=== PATIENT | female | born 1955 | race Caucasian/White ===

== ENCOUNTER 2019-12-16 08:00 | Outpatient (CLI) | payer OTHER ==
[2019-12-17 10:32] LABS: BASOPHILS % (AUTO) 0.9 %; EOSINOPHILS # (AUTO) 0.1 10^3/uL (0.0-0.7); EOSINOPHILS % (AUTO) 2.4 %; HGB - HEMOGLOBIN 13.7 g/dL (12.0-16.0); LYMPHOCYTES # (AUTO) 1.5 10^3/uL (1.5-3.5); LYMPHOCYTES % (AUTO) 34.8 %; MEAN CORPUSCULAR HEMOGLOBIN 32.2 pg (27.0-31.0); MEAN CORPUSCULAR HGB CONC 33.7 g/dL (32.0-36.0); MEAN CORPUSCULAR VOLUME 95.5 fL (81.0-99.0); MEAN PLATELET VOLUME 9.5 fL (7.9-10.8); MONOCYTES # (AUTO) 0.5 10^3/uL (0.0-1.0); MONOCYTES % (AUTO) 11.3 %; NEUTROPHILS # (AUTO) 2.1 10^3/uL (1.5-6.6); NEUTROPHILS % (AUTO) 50.4 %; PLT - PLATELET COUNT 361 10^3/uL (130-450); RED BLOOD COUNT 4.25 10^6/uL (4.20-5.40); RED CELL DISTRIBUTION WIDTH 11.6 % (12.0-15.0); WHITE BLOOD COUNT 4.2 x10^3/uL (4.8-10.8)
[2019-12-17 11:05] LABS: ALBUMIN 4.3 g/dL (3.2-5.5); ALBUMIN/GLOBULIN RATIO 1.6 (1.0-2.2); ALKALINE PHOSPHATASE 61 IU/L (42-121); ALT ALANINE AMINOTRANSFERASE 16 IU/L (10-60); AST ASPARTATE AMINOTRANSFERASE 17 IU/L (10-42); BILIRUBIN,TOTAL 0.8 mg/dL (0.2-1.0); BUN - BLOOD UREA NITROGEN 19 mg/dL (6-20); CALCIUM 9.5 mg/dL (8.5-10.3); CARBON DIOXIDE - CO2 30 mmol/L (21-32); CHLORIDE 101 mmol/L (101-111); CHOL/HDL RATIO 2.7 (<4.4); CHOLESTEROL 210 mg/dL; CREATININE 0.7 mg/dL (0.4-1.0); GFR - MDRD 85 (>89); GLUCOSE 109 mg/dL (70-100); HDL CHOLESTEROL 77 mg/dL; LDL CHOLESTEROL,CALCULATED 124 mg/dL; LDL/HDL RATIO 1.6 (<4.4); SODIUM 140 mmol/L (135-145); VLDL CHOLESTEROL 9 mg/dL
== END 2019-12-16 23:59 | disposition home or self-care (01) ==
LOC: LAB.S 08:00
PROVIDERS: ATTEND Registered Nurse
DX: I10 Essential (primary) hypertension (principal); R00.2 Palpitations
CPT/HCPCS: 36415; 80053; 80061; 83721; 84443; 85025

== ENCOUNTER 2020-08-11 14:33 | Outpatient (CLI) | payer OTHER ==
--- NOTE | 2020-08-11 16:35 | XRAY Report ---
PROCEDURE: SI Joints INDICATIONS: LOW BACK PAIN, L SI JOINT PAIN TECHNIQUE: 3 views of the sacroiliac joints were acquired. COMPARISON: None. FINDINGS: Bones: Mild osteoarthritic changes are noted in bilateral sacroiliac joints with joint space narrowin g and subchondral sclerosis. No bony erosions or ankylosis. No suspicious bony lesions. No fracture s. Soft tissues: Overlying bowel gas pattern is normal. No suspicious soft tissue densities. IMPRESSION: Mild bilateral sacroiliac joint osteoarthritis. No bony erosion or ankylosis. No fracture or dislocat ion. Reviewed by: Lamonte Collazo MD on 08/11/2020 4:33 PM PDT Approved by: Lamonte Collazo MD on 08/11/2020 4:33 PM PDT Station ID: [id number]
--- NOTE | 2020-08-11 16:36 | XRAY Report ---
PROCEDURE: Lumbar Spine 2 View INDICATIONS: LOW BACK PAIN, L SI JOINT PAIN TECHNIQUE: 3 views of the lumbar spine were acquired. COMPARISON: None. FINDINGS: Bones: 5 [id number] vertebrae are present. There is straightening of normal lumbar lordosis. M ild degenerative endplate changes and bilateral facet arthrosis throughout lumbar spine is seen. No vertebral body compression fractures. No suspicious bony lesions. Soft tissues: Overlying bowel gas pattern is normal. No suspicious soft tissue calcifications. IMPRESSION: Mild degenerative disc disease throughout lumbar spine. No compression fracture or spond ylolisthesis. Reviewed by: Lamonte Collazo MD on 08/11/2020 4:34 PM PDT Approved by: Lamonte Collazo MD on 08/11/2020 4:34 PM PDT Station ID: [id number]
== END 2020-08-11 14:34 | disposition home or self-care (01) ==
LOC: DI.S 14:33
PROVIDERS: ATTEND Registered Nurse
DX: M51.36 Other intervertebral disc degeneration, lumbar region (principal); M47.818 Spondylosis without myelopathy or radiculopathy, sacral and sacrococcygeal region
CPT/HCPCS: 72100; 72202

== ENCOUNTER 2022-04-11 11:56 | Outpatient (CLI) | payer MEDICARE, OTHER ==
[2022-04-11 14:21] LABS: ALBUMIN 4.4 g/dL (3.2-5.5); ALBUMIN/GLOBULIN RATIO 1.7 (1.0-2.2); BILIRUBIN,TOTAL 0.4 mg/dL (0.2-1.0); CALCIUM 9.1 mg/dL (8.5-10.3); CREATININE 0.6 mg/dL (0.4-1.0); POTASSIUM 4.9 mmol/L (3.5-5.0)
[2022-04-11 14:34] LABS: ESTIMATED AVERAGE GLUCOSE 120 mg/dL (70-100); HEMOGLOBIN A1c% 5.8 % (4.27-6.07)
[2022-04-11 14:54] LABS: BASOPHILS % (AUTO) 0.6 %; EOSINOPHILS # (AUTO) 0.1 10^3/uL (0.0-0.7); EOSINOPHILS % (AUTO) 2.2 %; HCT - HEMATOCRIT 42.5 % (37.0-47.0); HGB - HEMOGLOBIN 14.2 g/dL (12.0-16.0); LYMPHOCYTES # (AUTO) 1.6 10^3/uL (1.5-3.5); MEAN CORPUSCULAR HEMOGLOBIN 32.3 pg (27.0-31.0); MEAN CORPUSCULAR HGB CONC 33.4 g/dL (32.0-36.0); MEAN CORPUSCULAR VOLUME 96.8 fL (81.0-99.0); MEAN PLATELET VOLUME 9.4 fL (7.9-10.8); MONOCYTES # (AUTO) 0.5 10^3/uL (0.0-1.0); MONOCYTES % (AUTO) 10.1 %; NEUTROPHILS # (AUTO) 3.1 10^3/uL (1.5-6.6); NEUTROPHILS % (AUTO) 57.7 %; PLT - PLATELET COUNT 352 10^3/uL (130-450); RED BLOOD COUNT 4.39 10^6/uL (4.20-5.40); RED CELL DISTRIBUTION WIDTH 11.6 % (12.0-15.0); WHITE BLOOD COUNT 5.3 x10^3/uL (4.8-10.8)
== END 2022-04-11 11:57 | disposition home or self-care (01) ==
LOC: LAB.S 11:56
PROVIDERS: ATTEND Registered Nurse
DX: R00.2 Palpitations (principal); R73.03 Prediabetes; I10 Essential (primary) hypertension; Z11.59 Encounter for screening for other viral diseases
CPT/HCPCS: 36415; 80053; 83036; 84443; 85025; 86803

== ENCOUNTER 2023-08-29 07:50 | Outpatient (CLI) | payer MEDICARE ==
--- NOTE | 2023-08-30 10:00 | Mammography Report ---
BILATERAL DIGITAL SCREENING MAMMOGRAM 3D/2D: 08/29/2023 CLINICAL: Routine screening. Family history of breast cancer. Comparison is made to exams dated: 06/19/2022 mammogram - [facility] and 03/27/2018 ma mmogram - [facility]. There are scattered areas of fibroglandular density in both breasts (category b / 25%-50% glandular t issue). No significant masses, calcifications, or other findings are seen in either breast. There has been no significant interval change. IMPRESSION: NEGATIVE There is no mammographic evidence of malignancy. A 1 year screening mammogram is recommended. Based on the Tyrer Cuzick model (a risk assessment model) the patients lifetime risk is 6.6% and her 10 year risk is 3.3%. According to the ACR, ACS, and NCCN guidelines, an annual breast MRI exam elidia g with mammogram is recommended if the patients lifetime risk is 20% or greater. This exam was interpreted at Station ID: [id number]. NOTE: For mammograms, a report in lay terms will be sent to the patient. Approximately 15% of breast malignancies will not be visualized mammographically. In the management of a palpable breast mass, a negative mammogram must not discourage biopsy of a clinically suspicious lesion. Electronically Signed By: Malick Rios M.D. aty/:08/30/2023 07:03:20 letter sent: No_Letter ACR BI-RADS Category 1: Negative 3341F PARENCHYMAL PATTERN: (A) - The breast(s) demonstrate(s) scattered fibroglandular densities. BI-RADS CATEGORY: (1) - 1 Mammogram [id number] 1 year screening LATERALITY: (B)
== END 2023-08-29 07:51 | disposition home or self-care (01) ==
LOC: DI.S 07:50
PROVIDERS: ATTEND Registered Nurse
DX: Z12.31 Encounter for screening mammogram for malignant neoplasm of breast (principal); Z80.3 Family history of malignant neoplasm of breast; R92.323 Mammographic fibroglandular density, bilateral breasts

== ENCOUNTER 2023-09-10 10:02 | Outpatient (CLI) | payer MEDICARE ==
--- NOTE | 2023-09-10 11:56 | CT Report ---
PROCEDURE: Low Dose Lung Cancer Screen INDICATIONS: LUNG CANCER SCREENING TECHNIQUE: A CT scan of the chest was performed. Intravenous contrast media was not administered. Images were re corded and evaluated at appropriate window settings. Reformats: axial MIP of the chest, coronal and s agittal. For radiation dose reduction, the following was used: automated exposure control, adjustment of mA and/or kV according to patient size. COMPARISON: CT chest 07/12/2022 FINDINGS: Image quality: Excellent. Lungs and pleura: Biapical pleural-parenchymal scarring. Calcified granuloma at the superior aspect o f the right lower lobe. Additional scattered tiny calcified granulomata are noted. No pleural effusio ns. No pneumothorax. No suspicious pulmonary nodules which require follow up. Mediastinum: Heart size is normal. No pericardial effusion. Atherosclerotic vascular calcifications. Stable dilatation of the ascending thoracic aorta measuring 4.1 cm. The main pulmonary artery is norm al in caliber. No mediastinal adenopathy by size criteria. Mild coronary calcifications. Chest wall and lower neck: Thyroid is unremarkable. No axillary or supraclavicular adenopathy by size . Bones: No aggressive osseous abnormality. Degenerative changes of the spine. Upper Abdomen: Unremarkable. IMPRESSION: 1.No suspicious pulmonary nodules. 2.Mild dilatation of the ascending thoracic aorta measuring 4.1 cm, stable compared to prior. Lung RAD: 1 Recommendation: Continue annual screening in 12 Months with LDCT Reviewed by: Jared Ca MD on 09/10/2023 11:55 AM PDT Approved by: Jared Ca MD on 09/10/2023 11:55 AM PDT Station ID: [id number]
== END 2023-09-10 10:03 | disposition home or self-care (01) ==
LOC: DI 10:02
PROVIDERS: ATTEND Registered Nurse
DX: Z12.2 Encounter for screening for malignant neoplasm of respiratory organs (principal); I77.810 Thoracic aortic ectasia

== ENCOUNTER 2023-09-12 10:47 | Outpatient (CLI) | payer MEDICARE ==
--- NOTE | 2023-09-12 13:04 | DEXA Report ---
PROCEDURE: Dexa Spine and/or Hip INDICATIONS: POST MENOPAUSAL TECHNIQUE: Dual energy x-ray absorptiometry (DXA) was performed on a [employer] System. Regions measur ed are the AP Spine, femoral neck, and if needed forearm. COMPARISON: None FINDINGS: Lumbar Spine: Bone Mineral Density 1.194 g/cm/cm,T score 0.1. Left Femoral Neck: Bone Mineral Density 0.838 g/cm/cm, T score -1.4. Left Hip: Bone Mineral Density 0.784 g/cm/cm,T score -1.8. (T score greater or equal to -1.0: NORMAL) (T score from -1.1 to -2.4: OSTEOPENIA) (T score less than or equal to -2.5 to: OSTEOPOROSIS) Impression: By WHO criteria, this patient has low bone density (osteopenia). Patients with diagnosis of osteoporosis or osteopenia should have regular bone mineral density assess ment. For those eligible for Medicare, routine testing is allowed once every 2 years. Testing frequ ency can be increased for patients who have rapidly progressing disease or for those who are receivin g medical therapy to restore bone mass. Reviewed by: Jared Ca MD on 09/12/2023 1:03 PM PDT Approved by: Jared Ca MD on 09/12/2023 1:03 PM PDT Station ID: [id number]
== END 2023-09-12 10:48 | disposition home or self-care (01) ==
LOC: DI 10:47
PROVIDERS: ATTEND Registered Nurse
DX: Z78.0 Asymptomatic menopausal state (principal); M85.80 Other specified disorders of bone density and structure, unspecified site

== ENCOUNTER 2024-03-25 12:49 | Outpatient (CLI) | payer MEDICARE ==
--- NOTE | 2024-03-25 16:46 | MRI Report ---
PROCEDURE: Lumbar Spine WO INDICATIONS: LUMBAR RADICULOPATHY TECHNIQUE: Noncontrast sagittal T1 spin echo and T2 fast echo, sagittal STIR, axial T1 and T2 fast spin echo thr ough the lumbar spine. In cases with scoliosis, additional coronal T2 fast spin echo may be performe d. COMPARISON: None. FINDINGS: Image quality: Excellent. Alignment and Curvature: There is loss of the expected lumbar lordosis. Bone Marrow: Marrow is of normal overall signal. No acute vertebral body compression fractures. Spinal Cord: Conus medullaris terminates at the T12/L1 level. Visualized cord demonstrates normal s ignal and size. Paraspinous Soft Tissues: No paravertebral masses. T12-L1: Mild disc desiccation and height loss. Broad based disc bulge. Moderate facet ligamentum fla vum hypertrophy. No canal stenosis. No foraminal stenosis. L1-L2: Disc desiccation and height loss. Moderate facet ligamentum flavum hypertrophy. No canal st enosis. Mild bilateral neural foraminal stenosis. L2-L3: Mild disc desiccation and height loss. Moderate facet and ligamentum flavum hypertrophy. No canal stenosis. Mild right foraminal narrowing. No left neuroforaminal stenosis. L3-L4: Disc desiccation and height loss. Broad based disc bulge. Severe facet ligamentum flavum hyp ertrophy. Moderate canal stenosis. No foraminal stenosis. L4-L5: Severe disc desiccation and height loss. Vacuum disc phenomenon. Severe facet ligamentum fla vum hypertrophy. There is a T2 hypointense 0.8 x 0.3 x 2.7 cm left paracentral extra medullary mass ( series 2/image 10 and series 5/image 31). Broad-based disc bulge. Moderate canal stenosis. Moderate l eft foraminal stenosis. No right foraminal stenosis. L5-S1: Moderate disc desiccation and height loss. Severe facet and ligamentum flavum hypertrophy. N o canal stenosis. No foraminal stenosis. There is a small posterior focal high intensity zone. IMPRESSION: 1. Findings suspicious for disc extrusion at L4-5 as described above. However, contrast-enhanced MRI of the lumbar spine is recommended to exclude other etiologies for this finding including schwannoma or nerve sheath tumor. 2. Multilevel disc desiccation and height loss throughout the lumbar spine. 3. Broad-based disc bulges and facet and ligamentum flavum hypertrophy with resultant moderate canal stenosis at L3-4 and L4-5. 4. Moderate left foraminal stenosis at L4-5. Reviewed by: Josephine Pavon MD on 03/25/2024 4:44 PM PDT Approved by: Josephine Pavon MD on 03/25/2024 4:44 PM PDT Station ID: [id number]
== END 2024-03-25 12:50 | disposition home or self-care (01) ==
LOC: DI 12:49
PROVIDERS: ATTEND Registered Nurse
DX: M51.36 Other intervertebral disc degeneration, lumbar region (principal); M48.061 Spinal stenosis, lumbar region without neurogenic claudication; M47.816 Spondylosis without myelopathy or radiculopathy, lumbar region

== ENCOUNTER 2024-04-10 08:24 | Outpatient (CLI) | payer MEDICARE ==
[2024-04-10 08:54] LABS: CREATININE 0.8 mg/dL (0.6-1.3)
== END 2024-04-10 08:25 | disposition home or self-care (01) ==
LOC: LAB 08:24
PROVIDERS: ATTEND Registered Nurse
DX: D43.4 Neoplasm of uncertain behavior of spinal cord (principal)
CPT/HCPCS: 36415; 82565